=== PATIENT | male | born 1955 | race Caucasian/White ===

== ENCOUNTER 2017-11-09 03:02 | Emergency (ER) | payer BC ==
[2017-11-09] MEDS ORDERED: Acetaminophen PED LIQ* 160 MG/5 ML UDC PO ONE (03:19)
[2017-11-09] MEDS ORDERED: Dexamethasone IV* 4 MG/ML 1 ML (4 MG) IM ONE (03:20)
[2017-11-09] MEDS ORDERED: NS 0.9% 1000 ML* 1,000 ML IV ONE (03:28)
[2017-11-09] MEDS ORDERED: LORazepam INJ* 2 MG/ML 1 ML VIAL IV PUSH PRN (03:30)
[2017-11-09 03:53] LABS: ABS Basophils 0.1 10^3/ul (0-0.2); ABS Eosinophils 0.2 10^3/ul (0-0.6); ABS Lymphocytes 2.5 10^3/ul (1.0-4.8); ABS Monocytes 0.6 10^3/ul (0-0.8); ABS Neutrophils 4.1 10^3/ul (1.5-7.7); ABS Nucleated RBC 0 10^3/ul; Eosinophil % 2.6 % (0-6); Hematocrit 45 % (42-52); Hemoglobin 15.3 g/dl (14.0-18.0); Lymphocyte % 33.7 % (25-47); Mean Corpuscular HGB Conc 34 g/dl (31-36); Mean Corpuscular Hemoglobin 34 pg (27-31); Mean Corpuscular Volume 99 fL (80-94); Mean Platelet Volume 6.7 um3 (7.4-10.4); Nucleated Red Blood Cells % 0.1; Platelet Count 222 10^3/ul (150-450); Red Blood Count 4.54 10^6/ul (4.0-5.4); Red Cell Distribution Width 14 % (10.5-15); White Blood Count 7.4 10^3/ul (3.5-10.8)
[2017-11-09 04:00] LABS: INR 0.78 (0.77-1.02)
[2017-11-09 04:08] LABS: EGFR Non-African American 74.2 (>60)
[2017-11-09 04:20] LABS: Urine Appearance Clear; Urine Blood Negative (Negative); Urine Color Colorless; Urine Ketones Negative (Negative); Urine Protein Negative (Negative); Urine Specific Gravity 1.003 (1.010-1.030); Urine Urobilinogen Negative (Negative)
--- NOTE | 2017-11-09 06:40 | ED ---
Cally Chow Rebecca, scribed for Chilo Sharp MD on 11/09/17 at 0321 . Head Injury - HPI Summary HPI Summary: Pt is a 62 y/o M accompanied by his and daughter who presents to ED s/p head injury. Daughter reports that he got out of bed and fell, hitting his head on the bed post. He then went outside and fell again, hitting his head on the slate outside of their cabin. Family report that he hit hip lip during the falls. Denies any pain including ear pain and does not remember what happened. Confirms EtOH use, when asked how much he stated "enough." - History Of Current Complaint Chief Complaint: EDHeadInjury Stated Complaint: FALL Time Seen by Provider: 11/09/17 03:18 Hx Obtained From: Patient, Family/Systems Coordinator - Daughter, Mechanism Of Injury: Fall From A Standing Position Onset of Pain: Prior to Arrival Severity Currently: None Pain Intensity: 0 Pain Scale Used: 0-10 Numeric Location: Discrete At: Associated Signs And Symptoms: Memory Loss - Allergies/Home Medications Allergies/Adverse Reactions: Allergies Allergy/AdvReac Type Severity Reaction Status Date / Time Penicillins Allergy Unknown Verified 11/09/17 03:08 Reaction Details PMH/Surg Hx/FS Hx/Imm Hx Cardiovascular History: Reports: Hx Hypertension Respiratory History: Reports: Hx Chronic Obstructive Pulmonary Disease (COPD) Infectious Disease History: No Infectious Disease History: Denies: Traveled Outside the [place] in Last 30 Days - Family History Known Family History: Negative: Diabetes - Social History Alcohol Use: Occasionally Substance Use Type: Reports: None Smoking Status (MU): Never Smoked Tobacco Review of Systems Positive: Other - S/p falls. Negative: Fever Negative: Ear Ache Neurological: Other - Memory loss (does not remember falls) All Other Systems Reviewed And Are Negative: Yes Physical Exam - Summary Physical Exam Summary: VITAL SIGNS: Reviewed. GENERAL: ~Patient is a well-developed and nourished male who is lying comfortable in the stretcher. Patient is not in any acute respiratory distress. He is intoxicated but answers questions and would like to go home. HEAD AND FACE: Abrasion over the mid-upper lip with minimal bleeding. No ecchymosis, hematomas or skull depressions. No sinus tenderness. EYES: PERRLA, EOMI x 2, No injected conjunctiva, no nystagmus. EARS: Hearing grossly intact. Ear canals and tympanic membranes are within normal limits. MOUTH: Oropharynx within normal limits. Teeth are intact. NECK: Supple, trachea is midline, no adenopathy, no JVD, no carotid bruit, no c- spine tenderness, neck with full ROM. CHEST: Symmetric, no tenderness at palpation LUNGS: Clear to auscultation bilaterally. No wheezing or crackles. CVS: Regular rate and rhythm, S1 and S2 present, no murmurs or gallops appreciated. ABDOMEN: Soft, non-tender. No signs of distention. No rebound no guarding, and no masses palpated. Bowel sounds are normal. EXTREMITIES: FROM in all major joints, no edema, no cyanosis or clubbing. NEURO: Alert and oriented x 3. No acute neurological deficits. Speech is normal and follows commands. SKIN: Dry and warm GCS: 14 Triage Information Reviewed: Yes Vital Signs On Initial Exam: Initial Vitals Temp Pulse Resp BP Pulse Ox 96.8 F 69 20 143/70 98 11/09/17 03:03 11/09/17 03:03 11/09/17 03:03 11/09/17 03:03 11/09/17 03:03 Vital Signs Reviewed: Yes Diagnostics - Vital Signs Vital Signs Temp Pulse Resp BP Pulse Ox 11/09/17 03:03 96.8 F 69 20 143/70 98 - Laboratory Result Diagrams: 11/09/17 03:40 11/09/17 03:40 Lab Statement: Any lab studies that have been ordered have been reviewed, and results considered in the medical decision making process. - CT Maxillofacial CT CT Interpretation: No Acute Changes - NO facial bone fracture. ED physician reviewed this report. Pending official report. CT Interpretation Completed By: Radiologist Brain CT CT Interpretation: No Acute Changes - Normal head. ED physician reviewed this report. Pending official report. CT Interpretation Completed By: Radiologist C-Spine CT CT Interpretation: No Acute Changes - No cervical spine fracture. ED physician reviewed this report. Pending official report. CT Interpretation Completed By: Radiologist Re-Evaluation - Re-Evaluation First Eval Re-Evaluation Time: 05:18 Comment: Reviewed lab and CT results with the pt's family and removed the c- collar. He will be D/C to home when he santi up. Head Injury Course/Dx Assessment/Plan: Pt is a 62 y/o M accompanied by his and daughter who presents to ED s/p head injury. Daughter reports that he got out of bed and fell , hitting his head on the bed post. He then went outside and fell again, hitting his head on the slate outside of their cabin. Family report that he hit hip lip during the falls. Denies any pain including ear pain and does not remember what happened. Confirms EtOH use, when asked how much he stated "enough." Blood work was done with results including a serum alcohol of 332. UA is negative. Brain CT, maxillofacial CT, C-Spine CT reveal no acute findings. In the ED course, pt received tylenol, decadron, ativan and fluids. Pt will be signed out to Dr. Bloom, likely to be D/C to home with Dx of alcohol intoxication and contusion when he is sober. Allergy noted. - Diagnoses Provider Diagnoses: Alcohol intoxication, Contusion Discharge - Sign-Out/Discharge Documenting (check all that apply): Sign-Out Patient Signing out patient TO: Ton Bloom - awaiting EtOH metabolism - Discharge Plan Patient Education Materials: Alcohol Intoxication (ED), Contusion in Adults (ED ) Referrals: No Primary Care Phys,NOPCP [Primary Care Provider] - [facility] [place] [facility] REFERRAL [Outside] Additional Instructions: RETURN TO ED FOR ANY NEW OR WORSENING SYMPTOMS. The documentation as recorded by the Cally varela Rebecca accurately reflects the service I personally performed and the decisions made by me, Chilo Sharp MD.
--- NOTE | 2017-11-09 08:10 | RAD ---
HISTORY: fall, intoxication, head injury COMPARISONS: None TECHNIQUE: Multiple contiguous axial CT scans were obtained of the head without intravenous contrast. FINDINGS: HEMORRHAGE/INFARCT: There is no hemorrhage or acute infarct. MASSES/SHIFT: There is no mass or shift. EXTRA-AXIAL SPACES: There are no extra-axial fluid collections. SULCI AND VENTRICLES: There is a small focus of high attenuation at the level of the foramina of Chaudhari measuring 0.4 cm in size best seen on axial image 19. There is no ventriculomegaly. CEREBRUM: There are no focal parenchymal abnormalities. BRAINSTEM: There are no focal parenchymal abnormalities. CEREBELLUM: There are no focal parenchymal abnormalities. VESSELS: The vessels are grossly normal. PARANASAL SINUSES: The paranasal sinuses are clear. ORBITS: The orbits are unremarkable. BONES AND SOFT TISSUE: No bone or soft tissue abnormalities are noted. OTHER: None IMPRESSION: 1. SMALL HIGH ATTENUATION FOCUS AT THE LEVEL OF THE FORAMEN OF [place] SUGGESTIVE OF A COLLOID CYST. THERE IS NO VENTRICULOMEGALY. 2. NO ACUTE INTRACRANIAL PATHOLOGY.
--- NOTE | 2017-11-09 08:12 | RAD ---
HISTORY: fall, intoxication, head injury COMPARISONS: None TECHNIQUE: Multiple contiguous axial CT scans were obtained of the cervical spine without intravenous contrast, with coronal and sagittal multiplanar reformations. FINDINGS: Evaluation is somewhat limited by patient motion artifact. BRAIN: The visualized brain is unremarkable CENTRAL CANAL: Evaluation of the central canal is limited on CT technique; however, there is no obvious canalicular mass or epidural hemorrhage. ALIGNMENT: The alignment is normal, without subluxation or dislocation. VERTEBRAL BODIES: There is multilevel anterolateral marginal osteophyte formation. There is no displaced fracture. Consecutive defect of the posterior arch of C2. JOINTS: There is osteoarthritis of the uncovertebral and facet joints. There is osteoarthritis of the atlantoaxial articulation. MUSCULATURE: Unremarkable INTERVERTEBRAL DISCS: There is diffuse loss of intervertebral disc height. AXIAL IMAGES: On axial images, there is moderate neural foraminal narrowing at C4-C5 on the left with severe narrowing at C3-C4 on the right and moderate narrowing at C4-C5 and C6-C7 on the right. There is no osseous central canal stenosis. SOFT TISSUES: The visualized soft tissues of the neck are unremarkable. The prevertebral fat stripe is preserved. OTHER: None. IMPRESSION: 1. DEGENERATIVE DISC DISEASE AND OSTEOARTHRITIS. 2. NO ACUTE OSSEOUS INJURY TO THE CERVICAL SPINE
--- NOTE | 2017-11-09 08:13 | RAD ---
INDICATION: Fell and hit face. COMPARISON: No relevant prior exams available on the [facility] PACS for comparison. TECHNIQUE: Multidetector CT base of the skull through mandible without contrast. Multiplanar reformation. REPORT: Significant artifact from dental amalgam. No loculated soft tissue plane hematoma evident. Unremarkable orbital contents. The orbital and maxillary sinus margins, zygomatic arches, lamina papyracea, base of the maxilla, pterygoid plates, and nasal bones are intact. The mandible is intact. Normal temporal mandibular joint alignment. Grossly clear paranasal sinuses and partially visualized mastoid air spaces. IMPRESSION: Negative for maxillofacial fracture.
[2017-11-09 10:13] VITALS: BP 141/89
--- NOTE | 2017-11-09 11:09 | ED ---
Progress - Progress Note Progress Note: Final radiology read on patient's CT of the brain without contrast reveals "small high attenuation focus at the level of the foramen of Chaudhari suggestive of a colloid cyst. There is no ventriculomegaly". Patient was seen for falls with head injury last night/ETOH intoxication. Dr. Bloom took patient at sign out this AM from Dr. Lila garcia to follow up outpatient.Will recommend pt take a copy of report and image to his PCP and possible neurosurg (depending on sx). Left message to call. Will also mail letter as pt's demographic sheet lists an address for diann Weaver aware. Re-Evaluation - Re-Evaluation First Eval Re-Evaluation Time: 05:18 Comment: Reviewed lab and CT results with the pt's family and removed the c- collar. He will be D/C to home when he santi up. Course/Dx - Diagnoses Provider Diagnoses: Alcohol intoxication, Chipped tooth, Lip abrasion Discharge - Sign-Out/Discharge Documenting (check all that apply): Post-Discharge Follow Up - Discharge Plan Condition: Stable Disposition: HOME Patient Education Materials: Alcohol Intoxication (ED), Abrasion (ED) Referrals: [facility] [place] REFERRAL [Outside] Additional Instructions: Follow up with dentist for chipped tooth. Follow establish a primary care provider and follow up in 2-3 days. RETURN TO ED FOR ANY NEW OR WORSENING SYMPTOMS. - Billing Disposition and Condition Condition: STABLE Disposition: Home
--- NOTE | 2017-11-09 18:52 | ED ---
Shaun Chow Angela, scribed for Ton Bloom MD on 11/09/17 at 0713 . Progress - Progress Note Progress Note: This pt was signed out by Dr. Sharp, pending disposition, awaiting alcohol metabolism. Re-Evaluation - Re-Evaluation First Eval Re-Evaluation Time: 10:32 Change: Improved Comment: Pt is ambulatory with a steady gait. Pt has an abrasion on the upper lip. He has left upper incisor chipped. Pt will be discharged home. Course/Dx - Course Course Of Treatment: This pt was signed out by Dr. Sharp, pending disposition, awaiting alcohol metabolism. On re-evaluation pt is ambulatory with a steady gait. He has an abrasion on the upper lip. Pt also has the left upper incisor chipped, for which he will follow up with a dentist. He will be discharged home with follow up from his PCP in 2-3 days. Pt was given instructions to return to the ED for any worsening symptoms. He understands and agrees. - Diagnoses Provider Diagnoses: Alcohol intoxication, Chipped tooth, Lip abrasion Discharge - Sign-Out/Discharge Documenting (check all that apply): Discharge/Admit/Transfer - Discharge, Receiving Sign-Out Receiving patient FROM: Chilo Sharp - Discharge Plan Condition: Stable Disposition: HOME Patient Education Materials: Alcohol Intoxication (ED), Abrasion (ED) Referrals: [facility] [place] [facility]FERR[facility] [Outside] Additional Instructions: Follow up with dentist for chipped tooth. Follow establish a primary care provider and follow up in 2-3 days. RETURN TO ED FOR ANY NEW OR WORSENING SYMPTOMS. The documentation as recorded by the Shaun varela Angela accurately reflects the service I personally performed and the decisions made by , Ton Bloom MD.
== END 2017-11-09 10:39 | disposition home or self-care (01) ==
LOC: ED 03:02
DX: F10.129 Alcohol abuse with intoxication, unspecified (principal); S00.511A Abrasion of lip, initial encounter; S02.5XXA Fracture of tooth (traumatic), initial encounter for closed fracture; W22.03XA Walked into furniture, initial encounter; Y93.9 Activity, unspecified; Y92.009 Unspecified place in unspecified non-institutional (private) residence as the place of occurrence of the external cause; R41.3 Other amnesia; M50.323 Other cervical disc degeneration at C6-C7 level; M47.812 Spondylosis without myelopathy or radiculopathy, cervical region; I10 Essential (primary) hypertension; J44.9 Chronic obstructive pulmonary disease, unspecified; Z88.0 Allergy status to penicillin
CPT/HCPCS: 36415; 70450; 70486; 72125; 80053; 80320; 81003; 83605; 85025; 85610; 85730; 96374; 99283; G0480; J2060